=== PATIENT | female | born 1980 | race Caucasian/White ===

== ENCOUNTER 2018-01-05 19:01 | Emergency (ER) | payer MEDICAID ==
[2018-01-05] MEDS: IBUPROFEN 600 MG TAB PO (19:46)
== END 2018-01-05 20:06 | disposition home or self-care (01) ==
LOC: FTE 19:01
DX: S80.11XA Contusion of right lower leg, initial encounter (principal); W20.8XXA Other cause of strike by thrown, projected or falling object, initial encounter; Y92.9 Unspecified place or not applicable
CPT/HCPCS: 99283; Z7502

== ENCOUNTER 2018-03-01 00:29 | Emergency (ER) | payer MEDICAID ==
[2018-03-01] MEDS: ONDANSETRON (ODT) 4 MG TAB ODT (02:56)
[2018-03-01] MEDS: ALPRAZOLAM 0.25 MG TAB PO ×2 (02:57→03:01)
== END 2018-03-01 04:13 | disposition left against medical advice (07) ==
LOC: FTE 00:29
DX: A08.4 Viral intestinal infection, unspecified (principal); F41.9 Anxiety disorder, unspecified
CPT/HCPCS: 93005; 99284-25

== ENCOUNTER 2018-03-10 23:18 | Emergency (ER) | payer MEDICAID | END 2018-03-11 00:22 | disposition home or self-care (01) | LOC: FTE 03-11 00:22 | DX: S80.862A Insect bite (nonvenomous), left lower leg, initial encounter (principal); S80.861A Insect bite (nonvenomous), right lower leg, initial encounter; W57.XXXA Bitten or stung by nonvenomous insect and other nonvenomous arthropods, initial encounter; Y92.830 Public park as the place of occurrence of the external cause | CPT/HCPCS: 99283 ==

== ENCOUNTER 2018-05-22 22:20 | Emergency (ER) | payer MEDICAID | END 2018-05-23 03:40 | disposition home or self-care (01) | LOC: FTE 22:20 | DX: J06.9 Acute upper respiratory infection, unspecified (principal) | CPT/HCPCS: 99282; Z7502 ==